=== PATIENT | female | born 1980 | race African-American/Black ===

== ENCOUNTER 2017-08-05 14:52 | Emergency (ER) | payer MEDICARE, OTHER ==
[~2017-08-05] VITALS: Ht 154.9 cm; Wt 63.0 kg
== END 2017-08-05 16:05 | disposition home or self-care (01) ==
LOC: CFTX 14:52 → CED 14:52 → CFTX 15:52
DX: K08.89 Other specified disorders of teeth and supporting structures (principal); F31.9 Bipolar disorder, unspecified; Z88.8 Allergy status to other drugs, medicaments and biological substances
CPT/HCPCS: 96372; 99282; J1885